=== PATIENT | female | born 1950 | race Caucasian/White ===

== ENCOUNTER → 2018-05-24 | Outpatient (CLI) | payer MEDICARE, BC | END | disposition home or self-care (01) | LOC: PCVCCLINIC 15:57 | DX: I73.9 Peripheral vascular disease, unspecified (principal); I10 Essential (primary) hypertension; J44.9 Chronic obstructive pulmonary disease, unspecified; E11.8 Type 2 diabetes mellitus with unspecified complications; R06.09 Other forms of dyspnea | CPT/HCPCS: G0463 ==

== ENCOUNTER → 2018-09-06 | Outpatient (CLI) | payer MEDICARE, BC ==
[~2018-09-06] MED LIST: ASPIRIN 325 MG TABLET ONE; CLOPIDOGREL BISULFATE 75 MG TABLET ONE; DIAZEPAM 10 MG TABLET. ONE; EPTIFIBATIDE BOLUS 2,000 MCG/ML 10ML VIAL. IV ONE; HEPARIN for ARTERIAL LINE 1,500 ML ONE; HEPARIN for SUB-Q USE 5,000 UNIT/ML VIAL. SQ ONE; IODIXANOL 270 MG/ML 100 ML VIAL. ONE; IOHEXOL 350 MG/ML 100 ML VIAL. ONE; IV NORMAL SALINE 1000ML BAG 1,000 ML ONE; LIDOCAINE 1%/EPI 1:100,000 20 ML VIAL. ONE; MIDAZOLAM HCL/PF 2 MG/2 ML VIAL. ONE; WATER FOR INJECTION,STERILE 20 ML VIAL. IJ ONE; ceFAZolin SODIUM 1 GM VIAL ONE; fentaNYL PF VIAL 100 MCG/2 ML VIAL ONE; hydrALAZINE 20 MG/ML VIAL. ONE
--- NOTE | 2018-09-06 16:43 | PCVCINTER ---
APPROVED REPORT Study performed: 09/06/2018 12:47:06 Patient Details Patient Status: Out-Patient Room #: 2 The patient is a 68 year-old Female Event Personnel Nnamdi Conner RT(R)(), Vladimir Hanks RT(R)(), Noel Ly MD, Juan Manuel Nieto RN Risk Factors Arterial HypertensionDysplipidemia (Type: 0), Peripheral Vascular Disease, Chronic Lung Disease, Diabetes (Control: Oral)Last Creatanine 1Tobacco History (Current/Recent(w/in 1 year)) Previous Procedures/Diagnoses PVD, Hypertension, COPD Procedure Narrative The patient was brought electively to the Cardiac Catheterization Laboratory and was prepped and draped in a sterile manner. The right coronary system was accessed and visualized with a JR4 catheter. The left coronary system was accessed and visualized with a JL4 catheter. The left ventricle was accessed and visualized with a Angled Pigtail catheter. Left ventriculogram was performed in JACQUES projection. Hemostasis was obtained with manual pressure following sheath removal without any complications. The patient tolerated the procedure well and there were no complications associated with the procedure. There was no hematoma. Coronary Angiography The patient's coronary anatomy is left dominant. Diagnostic Cath Left MainNormal left main LADMild 20-30% proximal LAD plaquing CircumflexLarge and dominant. [id number] first marginal branch [id number] distally arising second marginal branch Right [id number]% proximal and mid right coronary plaquing R PDASmall, angiographically normal posterior descending Left Ventriculography The left ventricle is normal in size with normal contractility. The left ventricular ejection fraction is estimated to be >70%. Left ventricular wall motion abnormalities are not present. There is no mitral insufficiency. Hemodynamics The aortic pressure is 152/70 mmHg with a mean of 107 mmHg. The left ventricular pressure is 151/3 mmHg with a mean of 13 mmHg. Conclusion 1. Normal to hyperdynamic global and regional left ventricular systolic function. EF 75% 2. Mild scattered plaquing. Recommendations Aggressive Medical Therapy
--- NOTE | 2018-09-06 17:51 | PCVCINTER ---
EXAM: 1. AORTOGRAM AND BILATERAL LOWER EXTREMITY RUNOFF ANGIOGRAM 2. BILATERAL RENAL ANGIOGRAPHY 3. RIGHT SUPERFICIAL FEMORAL ARTERY ATHERECTOMY AND STENT PLACEMENT. 4. SECONDARY THROMBECTOMY RIGHT SUPERFICIAL FEMORAL ARTERY. 5. DRUG COATED BALLOON ANGIOPLASTY RIGHT SUPERFICIAL FEMORAL ARTERY. 6. RIGHT RENAL ARTERY STENT PLACEMENT. 7. LEFT RENAL ARTERY STENT PLACEMENT. INDICATION: Peripheral arterial disease. Coronary artery disease. Claudication right lower extremity. Uncontrolled hypertension. Renal atherosclerosis. No prior catheter based angiographic study is available. A full diagnostic angiogram study is performed today and the decision to intervene is based on this diagnostic study. PROCEDURE: Procedure and risks of angiography intervention is appropriate including limb loss stroke and were discussed with the patient's family and consent obtained. The patient's left groin was prepped in the normal sterile fashion. IV conscious sedation was used throughout procedure with appropriate monitoring from 11:00 AM through 12:30 PM.. Ultrasound was used to interrogate the left groin and showed the left common femoral artery to be patent. A permanent spot film was obtained. Under ultrasound guidance access into the left common femoral artery was obtained and a 5 [place] sheath was placed. Through this a 5 [place] flush catheter was placed into the abdominal aorta at the level of the renal arteries and AP aortogram was performed. Catheter was positioned at the aortic bifurcation and both oblique views of the pelvis were obtained. Catheter was positioned into the left external iliac artery and left leg runoff angiography was performed. Catheter was exchanged for a visceral catheter was placed into the right renal arteries and right renal angiograms obtained. Catheter was placed into the the left renal arteries and left renal angiograms were obtained. Catheter was advanced to the level of the right external iliac artery and right leg runoff angiography was obtained. Patient was given 4500 units of heparin. A 6 [place] crossover sheath was placed via the left groin to the level of the right common femoral artery. Atherectomy of the right mid/distal superficial femoral artery was performed with 2.0 mm Spectran[employer]Laurel [employer] Wolf laser atherectomy catheter in the standard fashion. Following atherectomy small areas of thrombus were observed and because of this secondary thrombectomy throughout the right superficial femoral artery was carried out with mechanical suction thrombectomy catheter in the standard fashion. Minimal debris was removed. Following this drug coated balloon angioplasty of the right mid/distal superficial femoral artery was carried out with a 4 x 80 Thrillophilia.com[employer]Laurel [employer] Wolf Ericka Josh OFFICE COPY SELECTOR catheter. Stent placement across the areas of high-grade stenosis in the right distal superficial femoral artery was carried out with a 6 x 60 Smart control stent with subsequent dilatation to 4.0 mm. Following this drug coated balloon angioplasty of the right proximal/mid superficial femoral artery was carried out with a 4 x 120 and 4 x 40 Swarm [employer] Ericka Josh OFFICE COPY SELECTOR catheter. Stent placement across the areas of high-grade stenosis in the right renal artery was carried out with a 6 x 18 Palmaz blue stent with subsequent dilatation to 0.0 mm. Stent placement across the areas of high-grade stenosis in the left renal artery was carried out with a 5 x 12 Palmaz blue stent with subsequent dilatation to 5.0 mm. Follow-up angiogram was performed. Catheters and wires removed. Sheath was removed and hemostasis obtained using the FISH device. No immediate complications. FINDINGS: Aortogram: There is one right and 2 left renal arteries. [id number]-lhlyteib plaque in the abdominal aorta without significant stenosis. Pelvis: Right and left common and external iliac arteries show good patency. The internal iliac arteries are patent. The right left common femoral and profunda femoral arteries are patent. Right renal artery: 90% stenosis proximal vessel due to moderate plaque. Left renal artery: There are 2 left renal arteries. The lower renal artery is a small accessory artery showing adequate patency. The upper arteries a dominant artery showing 80% stenosis in its proximal portion. Right leg: Diffuse moderate stenosis mid superficial femoral artery. High-grade 99% stenosis distal superficial femoral artery. The popliteal artery shows adequate patency throughout. 80% stenosis proximal anterior tibial artery which is the dominant runoff vessel into the dorsalis pedis. There is of moderate stenosis proximal peroneal and posterior tibial arteries. Left leg: Superficial femoral artery and popliteal artery showing adequate patency throughout. 60% stenosis origin of the posterior tibial artery. This vessel otherwise is a dominant runoff vessel into a small to moderate size plantar arteries. 50% stenosis origin peroneal artery which otherwise shows adequate patency to refill the dorsalis pedis. High-grade focal stenosis proximal anterior tibial artery which is small vessel. Remainder of the anterior tibial artery shows scattered disease and slower flow. Right superficial femoral artery: Following procedure as above vessel shows adequate patency. Right renal artery: Following procedure as above vessel shows good patency. Left renal artery: Following procedure as above vessel shows good patency. IMPRESSION: Areas of significant stenosis mid/distal right superficial femoral artery were treated as above with adequate patency restored. Bilateral renal artery stenosis as reviewed above were treated with stent placement with good patency restored. LOC:[id number]
== END | disposition home or self-care (01) ==
LOC: PCVCINTER 12:09
PROVIDERS: ATTEND Internal Medicine
DX: I70.213 Atherosclerosis of native arteries of extremities with intermittent claudication, bilateral legs (principal); I25.10 Atherosclerotic heart disease of native coronary artery without angina pectoris; I10 Essential (primary) hypertension; I70.1 Atherosclerosis of renal artery; I70.0 Atherosclerosis of aorta; E11.9 Type 2 diabetes mellitus without complications; E78.5 Hyperlipidemia, unspecified; J44.9 Chronic obstructive pulmonary disease, unspecified; Z98.51 Tubal ligation status; Z98.49 Cataract extraction status, unspecified eye; Z96.1 Presence of intraocular lens; Z83.3 Family history of diabetes mellitus; Z82.49 Family history of ischemic heart disease and other diseases of the circulatory system; Z81.1 Family history of alcohol abuse and dependence; F17.210 Nicotine dependence, cigarettes, uncomplicated; Z88.5 Allergy status to narcotic agent; Z79.899 Other long term (current) drug therapy; Z79.82 Long term (current) use of aspirin; Z79.84 Long term (current) use of oral hypoglycemic drugs
CPT/HCPCS: 36252; 37186; 37227; 37236; 37237; 75716; 76937; 93458; 99152; 99153; C1725; C1751; C1757; C1760; C1769; C1876; C1885; C1887; C1894; C2623; J0690; J1327; J1644; J2250; J3010; J3490; J7030; Q9967; J0360